=== PATIENT | male | born 1975 | race Caucasian/White ===

== ENCOUNTER 2017-08-05 20:12 | Inpatient (IN) | payer OTHER ==
[2017-08-05 20:12] VITALS: O2SAT 100
[2017-08-05] MEDS ORDERED: IOHEXOL 350 MG/ML 10 ML VIAL (for RAD DIAG) IVCONTRAST ONE (20:13)
[2017-08-05] MEDS ORDERED: DIPHTH/TETANUS/ACEL PERTUSSIS (BOOSTER) 0.5 ML VIAL/PFS IM ONE (20:16)
[2017-08-05] MEDS ORDERED: ceFAZolin 2 GM PREMIX 50 ML ONE (20:16)
[2017-08-05] MEDS ORDERED: MORPHINE SULFATE 4 MG/ML INJ ONE (20:22)
[2017-08-05 20:30] LABS: BASOPHIL # 0.1 TH/MM3 (0-0.2); BASOPHIL % 1.1 % (0.0-2.0); EOSINOPHIL # 0.1 TH/MM3 (0-0.4); EOSINOPHIL % 0.6 % (0.0-4.0); HEMATOCRIT 44.6 % (39.0-51.0); HEMOGLOBIN 15.6 GM/DL (13.0-17.0); LYMPH % 37.2 % (9.0-44.0); LYMPHOCYTE # 4.3 TH/MM3 (1.0-4.8); MEAN CELL VOLUME 89.5 FL (80.0-100.0); MEAN CORPUSCULAR HEMOGLOBIN 31.2 PG (27.0-34.0); MEAN CORPUSCULAR HGB CONC 34.9 % (32.0-36.0); MEAN PLATELET VOLUME 7.1 FL (7.0-11.0); MONO % 9.4 % (0.0-8.0); MONOCYTE # 1.1 TH/MM3 (0-0.9); NEUT % 51.7 % (16.0-70.0); PLATELET COUNT 272 TH/MM3 (150-450); RED BLOOD COUNT 4.98 MIL/MM3 (4.50-5.90); WHITE BLOOD COUNT 11.7 TH/MM3 (4.0-11.0)
[2017-08-05 20:40] LABS: INTERNATIONAL NORMALIZED RATIO 1.1 RATIO; PROTHROMBIN TIME - PATIENT 10.7 SEC (9.8-11.6)
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
[2017-08-05 21:15] VITALS: BP 132/64; PULSE 99; RESP 18; O2SAT 95
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
[2017-08-05 21:59] VITALS: PULSE 98; RESP 18; O2SAT 100
[2017-08-05] MEDS ORDERED: MORPHINE SULFATE 2 MG/ML INJ IV PUSH ONE (23:00)
[2017-08-05] MEDS ORDERED: ONDANSETRON HCL 4 MG/2 ML VIAL IV PUSH ONE (23:00)
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
[2017-08-05 23:33] VITALS: BP 118/61; PULSE 76; RESP 18; O2SAT 96
[2017-08-06 01:10] VITALS: BP 121/56; PULSE 88; RESP 16; O2SAT 100
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
[2017-08-06] MEDS ORDERED: MORPHINE SULFATE 2 MG/ML INJ IV PUSH PRN (01:15)
[2017-08-06] MEDS ORDERED: NALOXONE HCL 0.4 MG/ML AMP IV PUSH PRN ×2 (01:15→15:45)
[2017-08-06] MEDS ORDERED: ACETAMINOPHEN 325 MG TAB PO PRN (01:15)
[2017-08-06] MEDS ORDERED: SODIUM CHLORIDE 0.9% FLUSH 10 ML FLUSH IV FLUSH PRN (01:15)
[2017-08-06] MEDS ORDERED: ONDANSETRON HCL 4 MG/2 ML VIAL IVP PRN ×2 (01:15→15:45)
[2017-08-06] MEDS: SODIUM CHLOR 0.9% 1000 ML INJ 1,000 ML IV SCH ×2 (01:34→16:15)
[2017-08-06] MEDS: MORPHINE SULFATE 4 MG/ML INJ IV PUSH PRN ×3 (02:02→11:56)
[2017-08-06 02:57] VITALS: BP 128/68; PULSE 83; RESP 18; O2SAT 98
[2017-08-06 05:02] VITALS: BP 114/59; PULSE 90; RESP 18; O2SAT 95
[2017-08-06 06:00] VITALS: BP 116/61; PULSE 86; RESP 18; O2SAT 99
[2017-08-06] MEDS ORDERED: ACETAMINOPHEN 1000 MG/100 ML 0 ML IV ONE (06:55)
[2017-08-06] MEDS ORDERED: SODIUM CHLORID 0.9% 500 ML IV PRN (07:15)
[2017-08-06] MEDS ORDERED: METOPROLOL TARTRATE 25 MG TAB PO PRN (07:15)
[2017-08-06] MEDS ORDERED: CHLORHEXIDINE GLUCONATE 2 % 1 PACK (2 CLOTHS) TOPICAL PRN (07:15)
[2017-08-06] MEDS ORDERED: POVIDONE IODINE 5% (ANTISEPSIS KIT) 4 APPLICATIONS EACH NARE PRN (07:15)
[2017-08-06] MEDS ORDERED: LACTATED RINGER'S 1000 ML IV PRN (07:15)
[2017-08-06] MEDS ORDERED: GENTAMICIN SULFATE 80 MG/2 ML VIAL ONE ×2 (11:58)
[2017-08-06] MEDS ORDERED: LIDOCAINE HCL 1% PF 5 ML SYRINGE OTHER ONE (12:00)
[2017-08-06] MEDS ORDERED: PROPOFOL 200 MG/20 ML AMP IV ONE (12:00)
[2017-08-06] MEDS ORDERED: ONDANSETRON HCL 4 MG/2 ML VIAL IV ONE (12:00)
[2017-08-06] MEDS ORDERED: DEXAMETHASONE SOD PHOS 4 MG/ML VIAL IV ONE (12:00)
[2017-08-06] MEDS ORDERED: BUPIVACAINE/EPINEPHRINE 0.25% 50 ML VIAL ONE (12:01)
[2017-08-06] MEDS ORDERED: ACETAMINOPHEN 1000 MG/100 ML 100 ML IV ONE (13:03)
[2017-08-06] MEDS ORDERED: ceFAZolin 2 GM PREMIX 50 ML ONE (13:26)
[2017-08-06] MEDS ORDERED: ASPIRIN EC 81 MG TABEC PO ONE (15:45)
[2017-08-06] MEDS ORDERED: MAGNESIUM HYDROXIDE SUSP 30 ML CUP PO PRN (15:45)
[2017-08-06] MEDS ORDERED: diphenhydrAMINE HCL 25 MG CAP PO PRN (15:45)
[2017-08-06] MEDS ORDERED: ACETAMINOPHEN/HYDROcodone 325 MG/7.5 MG TAB PO PRN (15:45)
[2017-08-06] MEDS ORDERED: Post-op Orders (for Pharmacy) XX ONE (15:45)
[2017-08-06] MEDS ORDERED: HYDROmorphone HCL PF 2 MG/ML VIAL ONE (15:49)
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
[2017-08-06] MEDS ORDERED: DO NOT ADM ANY ANTICOAGULANT DRUGS PRN (15:59)
[2017-08-06 16:00] VITALS: BP 146/79; PULSE 94; RESP 16; TEMP 98.8; O2SAT 96
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
[2017-08-06] MEDS ORDERED: HYDR-3580 PO (16:04)
[2017-08-06] MEDS ORDERED: MIDAZOLAM HCL 2 MG/2 ML VIAL ONE (16:04)
[2017-08-06] MEDS ORDERED: ECASA81 PO (16:04)
[2017-08-06] MEDS ORDERED: *morphine SULFATE 10 MG/ML PERIprocedure ONLY ONE (16:14)
[2017-08-06] MEDS: CALCIUM/VITAMIN D 250 MG/125 U TAB PO SCH (17:34)
[2017-08-06] MEDS: MORPHINE SULFATE 8 MG/ML INJ IV PUSH PRN ×2 (17:35→21:31)
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
[2017-08-06 19:23] LABS: AUTOMATED NEUTROPHIL # 10.9 TH/MM3 (1.8-7.7); BASOPHIL % 0.3 % (0.0-2.0); HEMATOCRIT 39.9 % (39.0-51.0); HEMOGLOBIN 13.7 GM/DL (13.0-17.0); LYMPH % 5.9 % (9.0-44.0); LYMPHOCYTE # 0.7 TH/MM3 (1.0-4.8); MEAN CELL VOLUME 90.2 FL (80.0-100.0); MEAN CORPUSCULAR HEMOGLOBIN 31.1 PG (27.0-34.0); MEAN CORPUSCULAR HGB CONC 34.4 % (32.0-36.0); MEAN PLATELET VOLUME 7.4 FL (7.0-11.0); MONO % 4.6 % (0.0-8.0); MONOCYTE # 0.6 TH/MM3 (0-0.9); NEUT % 89.2 % (16.0-70.0); PLATELET COUNT 203 TH/MM3 (150-450); RED BLOOD COUNT 4.42 MIL/MM3 (4.50-5.90); RED CELL DISTRIBUTION WIDTH 13.5 % (11.6-17.2); WHITE BLOOD COUNT 12.2 TH/MM3 (4.0-11.0)
[2017-08-06 19:35] LABS: ALT (GPT) 41 U/L (12-78)
[2017-08-06 19:37] LABS: ALKALINE PHOSPHATASE 54 U/L (45-117); TOTAL BILIRUBIN ADULT 0.7 MG/DL (0.2-1.0); TOTAL PROTEIN 7.1 GM/DL (6.4-8.2)
[2017-08-06 19:47] LABS: ALBUMIN 3.8 GM/DL (3.4-5.0); AST (GOT) 60 U/L (15-37); BICARBONATE 27.1 MEQ/L (21.0-32.0); BLOOD UREA NITROGEN 13 MG/DL (7-18); CALCIUM 8.8 MG/DL (8.5-10.1); CHLORIDE 104 MEQ/L (98-107); CREATININE 1.13 MG/DL (0.60-1.30); GLOMERULAR FILTRATION RATE 56 ML/MIN (>89); GLUCOSE,RANDOM 125 MG/DL (74-106); MAGNESIUM 2.2 MG/DL (1.5-2.5); SODIUM (NA) 138 MEQ/L (136-145)
[2017-08-06 20:11] VITALS: BP 127/81; PULSE 85; RESP 18; TEMP 99.4; O2SAT 99
[2017-08-06] MEDS ORDERED: DOCUSATE SODIUM 50 MG/SENNA 8.6 MG TAB PO SCH (21:00)
[2017-08-06] MEDS: ASPIRIN EC 81 MG TABEC PO SCH (21:19)
[2017-08-06] MEDS: DOCUSATE SODIUM 50 MG/SENNA 8.6 MG TAB PO SCH (21:19)
[2017-08-06] MEDS: LACTATED RINGER'S 1000 ML INJ 1,000 ML IV SCH (21:23)
--- NOTE | 2017-08-06 21:23 | RADRPT ---
EXAM DATE/TIME: 08/06/2017 14:49 [facility] COMPARISON: No previous studies available for comparison. INDICATIONS : Fracture- ORIF. MEDICAL HISTORY : None. SURGICAL HISTORY : None. ENCOUNTER: Initial ACUITY: 1 day PAIN SCORE: Non-responsive. LOCATION: Left Ankle. FINDINGS: 2 views of the left ankle in the operating room show open reduction internal fixation of bimalleolar fractures. Fibular fixation consists of a lateral plate and multiple screws. Medial malleolus fixatio n consists of 2 corticated screws. Alignment of both bones is normal. No evidence of an acute complic ation. CONCLUSION: Expected radiographic appearance internal fixation of distal tibia and fibula fractures. Rosales Nichols MD on August 06, 2017 at 21:20 Board Certified Radiologist. This report was verified electronically.
--- NOTE | 2017-08-06 22:57 | RADRPT ---
EXAM DATE/TIME: 08/06/2017 22:26 [facility] COMPARISON: CHEST SINGLE AP, August 05, 2017, 20:28. INDICATIONS : Infiltrate. MEDICAL HISTORY : None. SURGICAL HISTORY : None. ENCOUNTER: Subsequent ACUITY: 1 day PAIN SCORE: 0/10 LOCATION: Bilateral chest FINDINGS: A single view of the chest demonstrates the lungs to be symmetrically aerated without evidence of mas s, infiltrate or effusion. The cardiomediastinal contours are unremarkable. Osseous structures are intact with a stable dextroscoliosis of the dorsal spine. CONCLUSION: Lungs are clear. No effusion. Bob Mueller MD on August 06, 2017 at 22:55 Board Certified Radiologist. This report was verified electronically.
[2017-08-07] VITALS (7 sets, daily range): BP systolic 116–142; BP diastolic 66–81; PULSE 82–98; RESP 16–18; TEMP 98–99.2; O2SAT 95–97
[2017-08-07 00:35] LABS: BILIRUBIN, URINE NEG (NEG); BLOOD, URINE NEG (NEG); GLUCOSE,URINE NEG (NEG); KETONE, URINE NEG (NEG); NITRITE,URINE NEG (NEG); PH, URINE 7.5 (5.0-8.5); URINE COLOR LIGHT-YELLOW (YELLW/STRAW); URINE LEUKOCYTE ESTERASE NEG (NEG)
[2017-08-07] MEDS: LACTATED RINGER'S 1000 ML INJ 1,000 ML IV SCH ×2 (01:44→11:52)
[2017-08-07] MEDS: MORPHINE SULFATE 8 MG/ML INJ IV PUSH PRN ×3 (01:53→21:31)
[2017-08-07] MEDS: SODIUM CHLORIDE 0.9% FLUSH 10 ML FLUSH IV FLUSH SCH ×3 (01:55→20:18)
[2017-08-07 09:06] LABS: AUTOMATED NEUTROPHIL # 9.2 TH/MM3 (1.8-7.7); BASOPHIL % 0.3 % (0.0-2.0); LYMPHOCYTE # 2.8 TH/MM3 (1.0-4.8); MEAN CELL VOLUME 89.9 FL (80.0-100.0); MEAN CORPUSCULAR HEMOGLOBIN 30.7 PG (27.0-34.0); MEAN CORPUSCULAR HGB CONC 34.1 % (32.0-36.0); MEAN PLATELET VOLUME 7.8 FL (7.0-11.0); MONO % 10.4 % (0.0-8.0); MONOCYTE # 1.4 TH/MM3 (0-0.9); NEUT % 68.3 % (16.0-70.0); PLATELET COUNT 216 TH/MM3 (150-450); RED BLOOD COUNT 4.23 MIL/MM3 (4.50-5.90); RED CELL DISTRIBUTION WIDTH 13.6 % (11.6-17.2); WHITE BLOOD COUNT 13.5 TH/MM3 (4.0-11.0)
[2017-08-07] MEDS: ACETAMINOPHEN/HYDROcodone 325 MG/7.5 MG TAB PO PRN ×3 (09:23→20:42)
[2017-08-07] MEDS: DOCUSATE SODIUM 50 MG/SENNA 8.6 MG TAB PO SCH ×2 (09:23→20:17)
[2017-08-07] MEDS: ASPIRIN EC 81 MG TABEC PO SCH ×2 (09:23→20:17)
[2017-08-07] MEDS: MULTIVITAMINS/MINERALS THERAPEUTIC TAB PO SCH (09:24)
[2017-08-07] MEDS: CALCIUM/VITAMIN D 250 MG/125 U TAB PO SCH ×3 (09:24→17:56)
--- NOTE | 2017-08-07 09:36 | PD.ORT.PN ---
Subjective Subjective Remarks pt has expectant left lower extremity post op soreness has no other subjective complaints pt lives in [place] Objective Vitals Vital Signs Date Time Temp Pulse Resp B/P (MAP) Pulse Ox O2 Delivery O2 Flow Rate FiO2 08/07/17 05:53 97 08/07/17 04:00 98.4 87 18 116/66 (83) 97 08/07/17 00:00 98.9 82 18 124/72 (89) 97 08/06/17 20:11 99.4 85 18 127/81 (96) 99 08/06/17 17:47 18 08/06/17 16:30 106 18 123/66 (85) 99 Nasal Cannula 2 08/06/17 16:15 91 15 142/75 (97) 100 Nasal Cannula 2 08/06/17 16:00 98.8 94 16 146/79 (101) 96 08/06/17 15:56 98.2 93 24 140/76 (97) 91 Nasal Cannula 2 I/O 08/06/17 08/06/17 08/06/17 08/07/17 08/07/17 08/07/17 07:00 15:00 23:00 07:00 15:00 23:00 Intake Total 3120 ml 340 ml Output Total 700 ml 1125 ml 1200 ml Balance -700 ml 1995 ml -860 ml Intake Oral 720 ml 240 ml IV Total 2400 ml 100 ml Output Urine Total 700 ml 1100 ml 1200 ml Estimated Blood Loss 25 ml # Bowel Movements 0 0 Result Diagram: 08/07/17 0752 08/06/17 1852 Objective Remarks also seen and examined by Dr. Alfonso Arce left lower extremity in splint sensation intact +NVI Assessment & Plan Assessment and Plan POD # 1 s/p I&D left lower leg, repair wound, ORIF L ankle bi-mall. fx IV abx x 48 hrs NWB LLE Aspirin 81 mg BID x 4 weeks patient will most likely be discharged late tomorrow he is either riding back to [place] or taking a flight out of [place] Wednesday was advised to follow up with orthopedic in his area at end of next week leave dressings in place Kaitlin Michaud Aug 07, 2017 09:36
[2017-08-07 10:19] LABS: BICARBONATE 27.9 MEQ/L (21.0-32.0); CALCIUM 8.5 MG/DL (8.5-10.1); CREATININE 0.92 MG/DL (0.60-1.30)
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
[2017-08-07] MEDS ORDERED: MIDAZOLAM HCL 2 MG/2 ML VIAL ONE (20:11)
[2017-08-08] VITALS: BP 127/63; PULSE 90; RESP 18; TEMP 98.6; O2SAT 98
[2017-08-08] MEDS: ACETAMINOPHEN/HYDROcodone 325 MG/7.5 MG TAB PO PRN ×4 (02:11→16:39)
[2017-08-08 08:00] VITALS: BP 141/79; PULSE 88; RESP 16; TEMP 98; O2SAT 98
[2017-08-08 08:19] LABS: AUTOMATED NEUTROPHIL # 5.7 TH/MM3 (1.8-7.7); BASOPHIL % 0.3 % (0.0-2.0); EOSINOPHIL # 0.1 TH/MM3 (0-0.4); EOSINOPHIL % 0.9 % (0.0-4.0); HEMATOCRIT 37.8 % (39.0-51.0); LYMPH % 33.2 % (9.0-44.0); LYMPHOCYTE # 3.5 TH/MM3 (1.0-4.8); MEAN CELL VOLUME 90.8 FL (80.0-100.0); MEAN CORPUSCULAR HEMOGLOBIN 31.3 PG (27.0-34.0); MEAN CORPUSCULAR HGB CONC 34.4 % (32.0-36.0); MEAN PLATELET VOLUME 7.3 FL (7.0-11.0); MONO % 10.7 % (0.0-8.0); MONOCYTE # 1.1 TH/MM3 (0-0.9); NEUT % 54.9 % (16.0-70.0); PLATELET COUNT 219 TH/MM3 (150-450); RED BLOOD COUNT 4.16 MIL/MM3 (4.50-5.90); RED CELL DISTRIBUTION WIDTH 13.2 % (11.6-17.2); WHITE BLOOD COUNT 10.5 TH/MM3 (4.0-11.0)
[2017-08-08] MEDS: ASPIRIN EC 81 MG TABEC PO SCH (08:27)
[2017-08-08] MEDS: MULTIVITAMINS/MINERALS THERAPEUTIC TAB PO SCH (08:28)
[2017-08-08] MEDS: CALCIUM/VITAMIN D 250 MG/125 U TAB PO SCH ×2 (08:28→12:38)
[2017-08-08] MEDS: SODIUM CHLORIDE 0.9% FLUSH 10 ML FLUSH IV FLUSH SCH (08:28)
[2017-08-08] MEDS: DOCUSATE SODIUM 50 MG/SENNA 8.6 MG TAB PO SCH (08:28)
[2017-08-08 08:44] LABS: ALBUMIN 3.4 GM/DL (3.4-5.0); AST (GOT) 48 U/L (15-37); BICARBONATE 30.7 MEQ/L (21.0-32.0); BLOOD UREA NITROGEN 10 MG/DL (7-18); CALCIUM 8.9 MG/DL (8.5-10.1); CHLORIDE 101 MEQ/L (98-107); CREATININE 1.05 MG/DL (0.60-1.30); GLOMERULAR FILTRATION RATE 77 ML/MIN (>89); GLUCOSE,RANDOM 86 MG/DL (74-106); MAGNESIUM 2.2 MG/DL (1.5-2.5); SODIUM (NA) 140 MEQ/L (136-145)
[2017-08-08 08:45] LABS: ALT (GPT) 30 U/L (12-78); PHOSPHORUS 3.7 MG/DL (2.5-4.9)
--- NOTE | 2017-08-08 08:48 | PD.ORT.PN ---
Subjective Subjective Remarks pt has expectant left lower extremity post op soreness states pain improved from yesterday pt lives in [place] Objective Vitals Vital Signs Date Time Temp Pulse Resp B/P (MAP) Pulse Ox O2 Delivery O2 Flow Rate FiO2 08/08/17 00:00 98.6 90 18 127/63 (84) 98 08/07/17 20:00 99.2 83 18 130/67 (88) 97 08/07/17 16:00 98.0 89 16 142/81 (101) 96 08/07/17 12:00 98.6 98 16 126/71 (89) 96 I/O 08/07/17 08/07/17 08/07/17 08/08/17 08/08/17 08/08/17 07:00 15:00 23:00 07:00 15:00 23:00 Intake Total 340 ml 1000 ml 700 ml 480 ml Output Total 1200 ml 750 ml 1300 ml 1200 ml Balance -860 ml 250 ml -600 ml -720 ml Intake Oral 240 ml 600 ml 480 ml IV Total 100 ml 1000 ml 100 ml Output Urine Total 1200 ml 750 ml 1300 ml 1200 ml # Bowel Movements 0 0 Result Diagram: 08/08/17 0730 08/08/17 0730 Objective Remarks also seen and examined by Dr. Alfonso Arce left lower extremity in splint sensation intact +NVI Assessment & Plan Assessment and Plan POD # 2 s/p I&D left lower leg, repair wound, ORIF L ankle bi-mall. fx IV abx x 48 hrs- Dr. Alfonso Arce put in order for two additional doses to total 48 hrs. NWB LLE Aspirin 81 mg BID x 4 weeks patient may be discharged home today after antibiotics complete he will be riding back to [place] and was advised to follow up with orthopedic in his area at end of next week leave dressings in place, please provide pre op and post op xrays along with operative report Kaitlin Michaud Aug 08, 2017 08:48
[2017-08-08 08:53] LABS: ALKALINE PHOSPHATASE 48 U/L (45-117); FREE T4 1.16 NG/DL (0.76-1.46); TOTAL BILIRUBIN ADULT 0.5 MG/DL (0.2-1.0); TOTAL PROTEIN 6.8 GM/DL (6.4-8.2)
[2017-08-08] MEDS ORDERED: ceFAZolin 2 GM PREMIX 50 ML IV SCH (09:00)
[2017-08-08 09:58] VITALS: O2SAT 96
[2017-08-08 10:04] LABS: HEMOGLOBIN A1C 5.1 % (4.3-6.0)
[2017-08-08 12:00] VITALS: BP 127/69; PULSE 82; RESP 16; TEMP 98; O2SAT 98
[2017-08-08] MEDS ORDERED: POTASSIUM CHLORIDE 20 MEQ CONTROLLED RELEASE TAB PO STA (12:04)
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
[2017-08-08] MEDS ORDERED: CALC250 PO (12:12)
[2017-08-08] MEDS ORDERED: PERI PO (12:12)
[2017-08-08] MEDS ORDERED: THERM PO (12:12)
[2017-08-08] MEDS ORDERED: CRUTMIS25 (12:14)
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
[2017-08-08] MEDS ORDERED: HYDR-3580 PO (12:18)
[2017-08-08] MEDS ORDERED: ECASA81 PO (12:18)
[2017-08-08] MEDS ORDERED: CEPH-460 PO (12:20)
== END 2017-08-08 17:00 | disposition home or self-care (01) | DRG 492 ==
LOC: NEPI 20:12 → NEDA 23:08 → EDBD 23:08 → NEDH 08-06 03:45 → N06B 08-06 16:53
PROVIDERS: ADMIT Hospitalist; ATTEND Hospitalist
PROC: 0QSH04Z Reposition Left Tibia with Internal Fixation Device, Open Approach (ICD-10-PCS; 2017-08-06)
PROC: 0HQLXZZ Repair Left Lower Leg Skin, External Approach (ICD-10-PCS; 2017-08-06)
PROC: 0QSK04Z Reposition Left Fibula with Internal Fixation Device, Open Approach (ICD-10-PCS; principal; 2017-08-06 13:57)
DX: S82.842A Displaced bimalleolar fracture of left lower leg, initial encounter for closed fracture (principal); S82.832B Other fracture of upper and lower end of left fibula, initial encounter for open fracture type I or II; Z87.891 Personal history of nicotine dependence; V29.49XA Motorcycle driver injured in collision with other motor vehicles in traffic accident, initial encounter; Y92.410 Unspecified street and highway as the place of occurrence of the external cause; Y93.89 Activity, other specified; E87.6 Hypokalemia; E86.0 Dehydration; D72.829 Elevated white blood cell count, unspecified
CPT/HCPCS: 70450; 70486; 71045; 71260; 72125; 72170; 73590; 73600; 74177; 76000; 80048; 80053; 81001; 83036; 83735; 84100; 84439; 84443; 85025; 85610; 85730; 86850; 86900; 86901; 90715; 94150; 96374; 96375; C1713; E0113; J0131; J0690; J1100; J1170; J1580; J2250; J2270; J2405; J3010; J7030; J7120; Q9967